=== PATIENT | female | born 1985 | race Caucasian/White ===

== ENCOUNTER → 2017-03-10 | Outpatient (CLI) | payer OTHER ==
[~2017-03-10] MED LIST: ASCO1CAP3 PO; CALC500T83 PO; CYAN100020 PO; MULTTAB58 PO; SUMA50TA15 PO; TRAM-453 PO; ZOLP5TAB PO
[2017-03-10 18:38] LABS: URINE APPEARANCE CLEAR (CLEAR); URINE BILIRUBIN NEG (NEG); URINE COLOR YELLOW; URINE NITRITE NEG (NEG); URINE PH 6.5 (4.5-7.5); URINE SPECIFIC GRAVITY 1.018 (1.000-1.030); UROBILINOGEN NEG (NEG)
[2017-03-10 18:50] LABS: MANUAL MICROSCOPIC REQUIRED? NO; REVIEW REQ? NO
== END | disposition home or self-care (01) ==
LOC: C.LABSPEC 10:58
PROVIDERS: ATTEND Obstetrics & Gynecology
DX: Z34.03 Encounter for supervision of normal first pregnancy, third trimester (principal)

== ENCOUNTER → 2017-03-14 | Outpatient (CLI) | payer OTHER ==
[2017-03-14 10:37] LABS: BASO % 0.2 %; BASO ABS # 0.02 K/uL (0-0.2); COMPLETE YES; EOS % 1.3 %; HEMATOCRIT 38.2 % (37-47); IG% 0.3 %; LYMPH % 21.8 %; LYMPH ABS # 2.25 K/uL (1.2-3.4); MEAN CELL VOLUME 94.3 fL (80-100); MEAN CORPUSCULAR HEMOGLOBIN 32.6 pg (25-34); MEAN CORPUSCULAR HGB CONC 34.6 g/dl (32-36); MEAN PLATELET VOLUME 11.1 fL (7.4-10.4); MONO % 6.2 %; NEUT % 70.2 %; PLATELET COUNT 256 K/uL (130-400); RED BLOOD COUNT 4.05 M/uL (4.2-5.4); WHITE BLOOD COUNT 10.33 K/uL (4.8-10.8)
[2017-03-15 15:02] LABS: CHLAMYDIA TRACH RNA*** NOT DETECTED (NOT DETECTED); GC (NEIS GONORRHOEAE)RNA** NOT DETECTED (NOT DETECTED)
== END | disposition home or self-care (01) ==
LOC: C.LAB1850 09:16
PROVIDERS: ATTEND Obstetrics & Gynecology
DX: Z34.01 Encounter for supervision of normal first pregnancy, first trimester (principal)

== ENCOUNTER → 2017-05-09 | Outpatient (CLI) | payer OTHER ==
[2017-05-09 12:27] LABS: GTGD 50 Grams
== END | disposition home or self-care (01) ==
LOC: C.LAB1850 10:26
PROVIDERS: ATTEND Obstetrics & Gynecology
DX: Z34.01 Encounter for supervision of normal first pregnancy, first trimester (principal)

== ENCOUNTER → 2017-08-08 | Outpatient (CLI) | payer OTHER ==
[2017-08-08 12:20] LABS: HEMATOCRIT 31.7 % (37-47); HEMOGLOBIN 10.5 g/dL (12.0-16.0)
== END ==
LOC: C.LAB1850 10:05
PROVIDERS: ATTEND Obstetrics & Gynecology
DX: Z34.02 Encounter for supervision of normal first pregnancy, second trimester (principal)

== ENCOUNTER → 2017-09-29 | Outpatient (CLI) | payer OTHER ==
[~2017-09-29] MED LIST changes: +BUTA1CAP17 PO; +FERR1TAB23 PO; +MAGN1CAP2 PO; +PYRI100T4 PO; -TRAM-453 PO; -ZOLP5TAB PO
== END | disposition home or self-care (01) ==
LOC: C.LABSPEC 16:10
PROVIDERS: ATTEND Obstetrics & Gynecology
DX: Z34.03 Encounter for supervision of normal first pregnancy, third trimester (principal)

== ENCOUNTER 2017-10-30 19:10 | Inpatient (IN) | payer OTHER ==
[~2017-10-30] VITALS: Ht 170.2 cm; Wt 84.1 kg
[2017-10-30] MEDS ORDERED: LACTATED RINGER'S 1000ML 1,000 ML IV PRN (19:36)
[2017-10-30 20:12] LABS: HEMATOCRIT 36.5 % (37-47); HEMOGLOBIN 12.8 g/dL (12.0-16.0); MEAN CELL VOLUME 89.2 fL (80-100); MEAN CORPUSCULAR HEMOGLOBIN 31.3 pg (25-34); PLATELET COUNT 185 K/uL (130-400); RED CELL DISTRIBUTION WIDTH CV 15.2 % (11.5-14.5); RED CELL DISTRIBUTION WIDTH SD 49.4 fL (36.4-46.3); WHITE BLOOD COUNT 15.06 K/uL (4.8-10.8)
[2017-10-30] MEDS ORDERED: EpHEDrine SULFATE INJ 50 MG/ML AMP ONE (20:14)
[2017-10-30] MEDS ORDERED: BUPIVACAINE 0.25% 30 ML VIAL ONE (20:14)
[2017-10-30] MEDS ORDERED: FENTANYL 2MCG/ML ROPIV 1.25MG/ML 100ML BAG EPI ONE (20:15)
[2017-10-30] MEDS ORDERED: FENTANYL CITRATE INJ 50 MCG/1 ML 2 ML VIAL ONE (20:15)
[2017-10-30 20:24] VITALS: Ht 170.2 cm; Wt 84.1 kg
[2017-10-30] MEDS ORDERED: BUTORPHANOL TARTRATE 1 MG/ML VIAL ONE (21:17)
[2017-10-30] MEDS ORDERED: BUTORPHANOL TARTRATE 1 MG/ML VIAL IV PRN (21:30)
[2017-10-30 21:33] LABS: MEAN CORPUSCULAR HGB CONC 35.1 g/dl (32-36)
[2017-10-30] MEDS ORDERED: LACTATED RINGER'S 1000ML 500 ML IV PRN (22:56)
[2017-10-30] MEDS ORDERED: OXYTOCIN 30 UNITS/500ML NSS IV PRN (23:00)
[2017-10-30] MEDS: LACTATED RINGER'S 1000ML 1,000 ML IV SCH (23:46)
[2017-10-31] MEDS: LACTATED RINGER'S 1000ML 1,000 ML IV SCH (02:23)
[2017-10-31] MEDS ORDERED: FENTANYL 2MCG/ML ROPIV 1.25MG/ML 100ML BAG EPI ONE (03:55)
[2017-10-31] MEDS ORDERED: LACTATED RINGER'S 1000ML 500 ML IV PRN (04:07)
[2017-10-31] MEDS ORDERED: NALOXONE HCL INJ 1 MG in SODIUM CHLORIDE 0.9% 1000ML 1,000 ML IV PRN (04:07)
[2017-10-31] MEDS ORDERED: PROMETHAZINE HCL INJ 6.25 MG in SODIUM CHLORIDE 0.9% 50ML 50 ML IV PRN (04:15)
[2017-10-31] MEDS ORDERED: DiphenhydrAMINE HCL 50 MG/ML VIAL IV PRN (04:15)
[2017-10-31] MEDS ORDERED: EpHEDrine SULFATE INJ 50 MG/ML AMP IV PRN (04:15)
[2017-10-31] MEDS ORDERED: NALOXONE HCL INJ 0.4 MG/1 ML VIAL/CARP IV PRN (04:15)
[2017-10-31] MEDS ORDERED: NALBUPHINE HCL INJ 10 MG/ML AMP IV PRN (04:15)
[2017-10-31] MEDS ORDERED: ONDANSETRON INJ 2 MG/ML 2 ML VIAL IV PRN (04:15)
[2017-10-31] MEDS ORDERED: FENTANYL 2MCG/ML ROPIV 1.25MG/ML 100ML BAG EPI PRN (04:15)
[2017-10-31] MEDS ORDERED: SUPERCREAM 0.870 % 15GM JAR EXT PRN (05:45)
[2017-10-31] MEDS ORDERED: HYDROCORTISONE ACETATE 25 MG SUPP PR PRN (05:45)
[2017-10-31] MEDS ORDERED: OXYTOCIN 30 UNITS/500ML NSS IV PRN (05:45)
[2017-10-31] MEDS ORDERED: ACETAMINOPHEN 325 MG TAB PO PRN (05:45)
[2017-10-31] MEDS ORDERED: BENZOCAINE 20% AER SPR 82.5 GM CAN EXT PRN (05:45)
[2017-10-31] MEDS ORDERED: LANOLIN OINT EXT PRN (05:45)
[2017-10-31] MEDS ORDERED: DIPHTHERIA/TETANUS/PERTUSSIS 0.5 ML SYR/VIAL IM. ONE (05:45)
--- NOTE | 2017-10-31 07:39 | Anesthesia Procedure Note ---
Anesthesia Epidural Removal Nt Date & Time Oct 31, 2017 at 07:39 Vital Signs Pain Intensity: 0.0 Notes Mental Status: alert / awake / arousable, participated in evaluation Nausea / Vomiting: adequately controlled Pain: adequately controlled Airway Patency, RR, SpO2: stable & adequate BP & HR: stable & adequate Hydration State: stable & adequate Neuraxial Anesthesia: was administered Anesthetic Complications: no major complications apparent, pt satisfied with anesthetic care Epidural: removed without complications, with tip intact
--- NOTE | 2017-10-31 08:12 | DELIVERY SUMMARY ---
DATE OF OPERATION: 10/31/2017 FINDINGS: Viable male with Apgars of 8 and 9. Baby delivered by vacuum extraction over midline episiotomy for maternal exhaustion, tight nuchal cord, cut on perineum. Cord gases and cord blood samples obtained. Placenta delivered spontaneously. Episiotomy repaired with 4-0 Vicryl in routine fashion. Estimated blood loss is 300 mL. LABOR NOTE: The patient is a 31-year-old 1, para 0 with an EDC of 10/26/2017 at 40+ weeks gestational age who presented to the labor and delivery and active labor. The patient states her contractions began at approximately 1630 hours on the 10/30/2017. She denied rupture of membranes or vaginal bleeding. The patient has a history of back fusion surgery. She saw anesthesia antenatally, and they felt they could try to place an epidural. Labs for the showed blood type of O negative, antibody negative. She received RhoGAM on 08/08/2017. She is rubella immune, hepatitis B negative. She had a negative cell free DNA screen, normal 1-hour Glucola x2, and a negative third trimester beta strep culture. Upon admission, the patient was 5 cm dilated, 100% effaced, and 0 station. Tracing was category 1. The patient was very uncomfortable. Anesthesia was consulted and an epidural was placed. Following the placement of the epidural, the patient had a hypotensive episode down to a blood pressure of 84/50, requiring ephedrine 10 mg IV x2. In response to the hypotension, the baby had a bradycardic episode, which responded to scalp stimulation, maternal positional change, and oxygen. heart rate tracing returned from a category 3 to a category 2 at this point and remained a category 2 for the remainder of the labor. During the examination with the bradycardic episode, there was spontaneous rupture of membranes of clear fluid. The patient at this time was 6 cm, 100% effaced, and 0 station. Over the next 5 hours, the patient progressed to full dilatation and began her second stage. She pushed for 2 hours bringing the vertex down to a +3 station. Some tachycardia was noted as well as an elevated maternal temperature. The patient was exhausted at this point and after obtaining verbal consent, a vacuum extractor was applied to the vertex and with the next contraction over midline episiotomy, the baby was delivered. A tight nuchal cord was noted necessitating cutting of the umbilical cord on the perineum. The remainder of the baby was delivered and taken over to the resuscitation stand for evaluation. Cord gases and cord blood samples obtained, and the placenta was delivered spontaneously. Inspection of the perineum showed a midline episiotomy. This was repaired with 4-0 Vicryl. Estimated blood loss was 300 mL. Sponge and needle count were correct. I attest to the content of the Intraoperative Record and any orders documented therein. Any exception s are noted below.
[2017-10-31] MEDS: IBUPROFEN 600 MG TAB PO PRN ×3 (08:18→20:37)
[2017-10-31 08:45] VITALS: BP 116/72; PULSE 97; TEMP 37; O2SAT 97
[2017-10-31 08:50] VITALS: BP 122/79; PULSE 88; TEMP 36.8; O2SAT 96
[2017-10-31] MEDS: FERROUS SULFATE 325 MG TAB PO SCH (08:58)
[2017-10-31] MEDS: DOCUSATE SODIUM 100 MG CAP PO SCH ×2 (08:58→20:36)
[2017-10-31] MEDS: PRENATAL VITAMIN TAB PO SCH (08:58)
[2017-10-31 11:15] VITALS: BP 120/80; PULSE 75; TEMP 36.6; O2SAT 99
[2017-10-31 15:40] VITALS: BP 123/82; PULSE 72; TEMP 36.4
[2017-10-31 20:30] VITALS: BP 109/70; PULSE 74; TEMP 36.4
[2017-10-31] MEDS: ACETAMINOPHEN/CODEINE 300/30MG TAB PO PRN (22:30)
[2017-10-31 23:50] VITALS: BP 128/73; PULSE 71; TEMP 36.5
[2017-11-01 04:10] VITALS: BP 103/66; PULSE 73; TEMP 36.4
[2017-11-01] MEDS: ACETAMINOPHEN/CODEINE 300/30MG TAB PO PRN ×3 (06:34→16:02)
--- NOTE | 2017-11-01 06:48 | Progress Note ---
Subjective Nov 01, 2017. Subjective conversation w/ patient, physical exam, chart review, lab review Ambulation: ambulating normally Voiding: no voiding problems Passing Gas: Yes Diet Tolerance: Regular Diet Lochia: Moderate Feeding Type: Breast Feeding Pain: Patient has a h/o lower back pain and back surgery--c/o increased Review of Systems Constitutional: No fever, No chills Respiratory: No cough Cardiac: No chest pain Abdomen: No pain, No nausea, No vomiting Female : No dysuria Objective Vital Signs Date Time Temp Pulse Resp B/P (MAP) Pulse Ox O2 Delivery O2 Flow Rate FiO2 11/01/17 04:10 36.4 73 18 103/66 (78) Room Air 10/31/17 23:50 36.5 71 20 128/73 (91) Room Air 10/31/17 23:50 Room Air 10/31/17 20:30 36.4 74 18 109/70 (83) Room Air 10/31/17 15:40 Room Air 10/31/17 15:40 36.4 72 18 123/82 (96) Room Air 10/31/17 11:15 36.6 75 18 120/80 (93) 99 Room Air 10/31/17 08:50 36.8 88 18 122/79 (93) 96 Room Air 10/31/17 08:45 97 Room Air 10/31/17 08:45 37.0 97 18 116/72 Physical Exam General Appearance: WELL-APPEARING, WD/WN, NO APPARENT DISTRESS Respiratory/Chest: lungs clear, no respiratory distress Cardiovascular: regular rate, rhythm, no murmur Abdomen: non tender, soft Fundus: Firm, Relation to Umbilicus (1 cm below umbillicus ) Extremities: non-tender, normal inspection Laboratory Results Last 24 Hours Test 11/01/17 04:44 Medications Current Inpatient Medications Medications (Trade) Dose Ordered Sig/Homa Route Start Time Stop Time Status Last Admin Dose Admin Oxytocin (Pitocin IV) 30 units UD PRN IV 10/31/17 05:45 11/30/17 05:44 Benzocaine (Dermoplast Aero Spr) 1 appln PRN PRN EXT 10/31/17 05:45 11/30/17 05:44 Cocaine HCl (Supercream 0.870% Cr) BID PRN EXT 10/31/17 05:45 11/14/17 05:44 10/31/17 16:34 1 GM Hydrocortisone Acetate (Anusol Hc Supp) 25 mg BID PRN LA 10/31/17 05:45 11/30/17 05:44 Lanolin (Lanolin Oint) PRN PRN EXT 10/31/17 05:45 11/30/17 05:44 Prenat Multivit/ Engineering [employer]/Iron/Folic Ac ( Vitamin Tab) 1 tab DAILY PO 10/31/17 08:00 11/30/17 07:59 10/31/17 08:58 1 TAB Ibuprofen (Motrin Tab) 600 mg Q4H PRN PO 10/31/17 05:45 11/30/17 05:44 10/31/17 20:37 600 MG Acetaminophen (Tylenol Tab) 650 mg Q6H PRN PO 10/31/17 05:45 11/30/17 05:44 10/31/17 16:34 650 MG Acetaminophen/ Codeine Phosphate (Tylenol w/ Codeine #3 Tab) 1 tab Q4H PRN PO 10/31/17 05:45 11/30/17 05:44 11/01/17 06:34 1 TAB Acetaminophen/ Codeine Phosphate (Tylenol w/ Codeine #3 Tab) 2 tab Q4H PRN PO 10/31/17 05:45 11/30/17 05:44 10/31/17 22:30 2 TAB Bisacodyl (Dulcolax Tab) 5 mg 20 PO 11/01/17 20:00 11/01/17 20:01 Docusate Sodium (coLACE CAP) 100 mg BID PO 10/31/17 08:00 11/30/17 07:59 10/31/17 20:36 100 MG Ferrous Sulfate (Feosol Tab) 325 mg DAILY PO 10/31/17 08:00 11/30/17 07:59 10/31/17 08:58 325 MG Assessment and Plan Post- Day#: 1 Continue Routine Care: 31 O-/GBS-/RI PPD1, vaginal delivery morning of 10/31. Reviewed vitals, WNL. No signs or sx of anemia. Patient is doing well clinically. Plan; 1. Cont. pp care; ambulate, control pain, support BF, monitor lochia Resident Physician Supervision Note: I was present with Dr. Lowry during the history and exam. I discussed the case with the resident and agree with the findings and plan as documented in the note. Any exceptions or clarifications are listed here: Doing well. Back pain is ok but she needs to get moving today. Using some pain meds. . Routine pp care., Documented By: Janice Bruner
[2017-11-01 07:27] VITALS: BP 109/73; PULSE 73; TEMP 36.6; O2SAT 97
[2017-11-01] MEDS: FERROUS SULFATE 325 MG TAB PO SCH (08:37)
[2017-11-01] MEDS: DOCUSATE SODIUM 100 MG CAP PO SCH ×2 (08:37→20:18)
[2017-11-01] MEDS: PRENATAL VITAMIN TAB PO SCH (08:37)
[2017-11-01] MEDS: IBUPROFEN 600 MG TAB PO PRN (08:38)
[2017-11-01 09:22] LABS: HEMATOCRIT 31.3 % (37-47); HEMOGLOBIN 10.8 g/dL (12.0-16.0)
[2017-11-01 15:40] VITALS: BP 113/73; PULSE 72; TEMP 36.6
[2017-11-01] MEDS ORDERED: BISACODYL 5 MG TABEC PO SCH (20:00)
--- NOTE | 2017-11-01 23:31 | Discharge Instructions ---
Discharge Instructions Date of Service Nov 01, 2017. Admission Reason for Admission: Check Labor Discharge Discharge Diagnosis / Problem: normal delivery Discharge Goals Goal(s): Routine recovery after delivery Medications Continue Dispensed Medications: supercream, dermaplast, tucks Activity Recommendations Activity Limitations: per Instructions/Follow-up section . Instructions / Follow-Up Instructions / Follow-Up ACTIVITY RECOMMENDATIONS: * Gradual return to full activity over the next 2-3 weeks. * No lifting - nothing heavier than baby over the next 2-3 weeks. * Do not engage in vigorous exercise, sexual activity or sports until cleared by your physician. * Do not drive or operate any motorized equipment until cleared by your physician. * You may shower/bathe daily. MEDICATIONS: For discomfort or pain, you may use Acetaminophen (Tylenol), Ibuprofen (Advil), or Naproxen (Aleve) following the package directions. For constipation you may use Colace following the package directions. BREAST CARE: If you are not breast feeding: * Wear a supportive bra 24 hours a day for one to two weeks. * Avoid stimulating your breasts and nipples as much as possible during the first few weeks after delivery. * When taking a shower, have the warm water hit your back, not breasts. * When your breasts feel full, apply ice packs. Usually three to four times a day helps ease the discomfort. * Take a mild pain medication (Tylenol / Motrin) when you are uncomfortable. If breast feeding: * Use breast milk to lubricate nipples. Lansinoh cream may be used for sore nipples. You do not need to remove cream prior to breast feeding. If using a different brand of cream, check the label for directions regarding removal of cream prior to nursing. * Wear a supportive bra. * If having problems with breasts or breast feeding, call a child welfare consultant or your health care provider. EPISIOTOMY CARE: After delivery, if you have an episiotomy (stitches), the following steps will ease discomfort and aid healing. * For the first 24 hours after delivery, place ice packs next to your episiotomy to help reduce swelling. * After the first 24 hour-period, sitz baths, either portable or in the tub, are suggested. A shower with a shower arm sprayed over the episiotomy may be comforting. * Alesha care should be done after each voiding and bowel movement. Squirt warm water from a plastic bottle over the perineum (region of the body between the anus and urinary opening) and pat dry. * Use Dermoplast to ease discomfort. Shake container. [place]ps[place] directly over the episiotomy. Place a Tucks on a clean sanitary pad next to your episiotomy. SPECIAL CARE INSTRUCTIONS: When you are discharged from the hospital, it is important for you to follow the instructions listed below: * During the first week at home, you should be able to care for yourself and your baby. In addition, the usual light household activities are encouraged. * Limit your activities to the way you feel. Do not try to clean the house or move furniture. Be sensible. * If you actively engage in sports and have done so up until the time of your delivery, you may resume these activities as soon as you feel able. This may take up to one month or even longer. Use good judgment. * Continue to take your vitamins for at least six weeks after the of your baby. * Your diet need not be limited unless you were on a special diet before your delivery. Breast-feeding mothers need around 2500 calories per day and at least 64-80 ounces of fluid per day (8 to 10 glasses). * You should eat foods from the four major food groups. Crash diets or fad diets are to be avoided. Eating lean meats, fresh fruits and vegetables, low-fat dairy products, high fiber foods and a regular exercise program, will help you get back to your pre- weight without putting your health at risk. * Constipation is sometimes a problem after delivery. Take a mild laxative as needed. If breast feeding, Milk of Magnesia is acceptable to use. You may use a suppository or Fleets enema if no episiotomy. * A daily shower or tub bath is suggested. Be sure to thoroughly and gently dry the perineum. * A bloody vaginal discharge will usually continue until around four weeks post . A small amount of bleeding may continue for as long as six weeks. Vaginal discharge changes from the bright red bleeding after delivery to pink then brownish and finally yellowish-pink before becoming white and disappearing. * Bleeding may increase with activity. Your first period may come in 4-8 weeks. If you are breast feeding, your period may be delayed even longer. * [place] (sex) can begin whenever both you and your partner feel comfortable and do not have any form of genital infection. It is recommended that you wait at least six weeks for internal and external healing to occur. If you have questions, please talk to your health care practitioner. A condom should be used to prevent infection and . * Foreplay, gentle intercourse and lubrication is very important the first several times to prevent pain. A water-based lubricant such as K-Y jelly or Astroglide may be used. * If you have RH negative blood and your baby is RH positive, you will receive RHOGAM by injection prior to discharge. The nurse will give you a card to keep with you that has the date and place that you received RHOGAM after delivery. * During your care, you had a Rubella screen done to check for the presence of rubella antibodies in your blood. If your test was negative, you will receive a Rubella vaccine prior to discharge. This vaccine may cause a fever, soreness at the injection site and flu-like symptoms. If these symptoms persist, notify your health care practitioner. is not advised for one month after a Rubella vaccine. * Verbalizes understanding of car seat law as reviewed with patient nursing. * Car Seat hand-out given and reviewed with patient by nursing. * Shaken baby information reviewed with patient by nursing. Call you doctor if: * Heavy bleeding (saturating several pads an hour) or passing clots the size of your fist. * A fever >101 degrees F (38.3 degrees C) on two occasions four hours apart and /or chills. * Unusual pain in the pelvic or vaginal areas. * "Baby Blues" lasting longer than two weeks. If you have any questions or concerns, call your health care practitioner at . FOLLOW UP VISIT: * Please call the office at to schedule a 6 week examination. It is important you keep this appointment. It is important for you to make arrangements for either yearly or twice yearly check-ups thereafter. Current Hospital Diet Patient's current hospital diet: Regular OB Diet Discharge Diet Recommended Diet: Regular OB Diet Pending Studies Studies pending at discharge: no Medical Emergencies . Who to Call and When: Medical Emergencies: If at any time you feel your situation is an emergency, please call 911 immediately. . Non-Emergent Contact Non-Emergency issues call your: [employer] . . "Provider Documentation" section prepared by Ami Zhang .
[2017-11-02 00:50] VITALS: BP 111/75; PULSE 82; TEMP 36.8; O2SAT 97
[2017-11-02] MEDS: ACETAMINOPHEN/CODEINE 300/30MG TAB PO PRN ×2 (01:09→08:33)
--- NOTE | 2017-11-02 06:50 | Progress Note ---
Subjective Nov 02, 2017. Subjective conversation w/ patient, physical exam, chart review, lab review Ambulation: ambulating normally Voiding: no voiding problems Passing Gas: No Diet Tolerance: Regular Diet Lochia: Small Feeding Type: Breast Feeding Comment: Patient has chronic back pain. Also c/o pain below her left knee. Review of Systems Constitutional: No fever, No chills Respiratory: No cough, No shortness of breath Cardiac: No chest pain Abdomen: No pain, No nausea, No vomiting Female : No dysuria Objective Vital Signs Date Time Temp Pulse Resp B/P (MAP) Pulse Ox O2 Delivery O2 Flow Rate FiO2 11/02/17 00:50 97 Room Air 11/02/17 00:50 36.8 82 18 111/75 (87) 97 Room Air 11/01/17 15:40 Room Air 11/01/17 15:40 36.6 72 20 113/73 (86) Room Air 11/01/17 09:02 Room Air 11/01/17 07:27 36.6 73 16 109/73 (85) 97 Room Air Physical Exam General Appearance: WELL-APPEARING, WD/WN, NO APPARENT DISTRESS Respiratory/Chest: lungs clear, no respiratory distress Cardiovascular: regular rate, rhythm, no murmur Abdomen: non tender, soft Fundus: Firm, Relation to Umbilicus (below u) Extremities: normal inspection, no pedal edema Laboratory Results Last 24 Hours Test 11/01/17 08:58 Hemoglobin 10.8 g/dL Hematocrit 31.3 % Medications Current Inpatient Medications Medications (Trade) Dose Ordered Sig/Homa Route Start Time Stop Time Status Last Admin Dose Admin Oxytocin (Pitocin IV) 30 units UD PRN IV 10/31/17 05:45 11/30/17 05:44 Benzocaine (Dermoplast Aero Spr) 1 appln PRN PRN EXT 10/31/17 05:45 11/30/17 05:44 Cocaine HCl (Supercream 0.870% Cr) BID PRN EXT 10/31/17 05:45 11/14/17 05:44 10/31/17 16:34 1 GM Hydrocortisone Acetate (Anusol Hc Supp) 25 mg BID PRN MA 10/31/17 05:45 11/30/17 05:44 Lanolin (Lanolin Oint) PRN PRN EXT 10/31/17 05:45 11/30/17 05:44 Prenat Multivit/ [place]/Iron/Folic Ac ( Vitamin Tab) 1 tab DAILY PO 10/31/17 08:00 11/30/17 07:59 11/01/17 08:37 1 TAB Ibuprofen (Motrin Tab) 600 mg Q4H PRN PO 10/31/17 05:45 11/30/17 05:44 11/01/17 08:38 600 MG Acetaminophen (Tylenol Tab) 650 mg Q6H PRN PO 10/31/17 05:45 11/30/17 05:44 10/31/17 16:34 650 MG Acetaminophen/ Codeine Phosphate (Tylenol w/ Codeine #3 Tab) 1 tab Q4H PRN PO 10/31/17 05:45 11/30/17 05:44 11/01/17 06:34 1 TAB Acetaminophen/ Codeine Phosphate (Tylenol w/ Codeine #3 Tab) 2 tab Q4H PRN PO 10/31/17 05:45 11/30/17 05:44 11/02/17 01:09 2 TAB Docusate Sodium (coLACE CAP) 100 mg BID PO 10/31/17 08:00 11/30/17 07:59 11/01/17 20:18 100 MG Ferrous Sulfate (Feosol Tab) 325 mg DAILY PO 10/31/17 08:00 11/30/17 07:59 11/01/17 08:37 325 MG Assessment and Plan Post- Day#: 2 Continue Routine Care: Resident Physician Supervision Note: I interviewed and examined the patient. Discussed with Dr. Lowry and agree with findings and plan as documented in the note. Any exceptions or clarifications are listed here: [None] Documented By: Ami Negrete Lorena 31 O-/GBS-/RI PPD2, vaginal delivery morning of 10/31. Reviewed vitals, WNL. No signs or sx of anemia. Patient is doing well clinically. Patient was c/ o some pain distal and lateral to her left knee--lasted 2 hours. Denies PMH of clots or FH of clots. Pain has since resolved, no overlying erythema or warmth-- likely MSK in origin. Plan; 1. Cont. pp care; ambulate, control pain, support BF, monitor lochia 2. Patient received rhogam at 28wks. Will determine need for additional dose prior to dc based on child's blood type. 3. Discussed dc planning
[2017-11-02 08:20] VITALS: BP 109/70; PULSE 67; TEMP 36.7; O2SAT 96
[2017-11-02] MEDS: FERROUS SULFATE 325 MG TAB PO SCH (08:33)
[2017-11-02] MEDS: PRENATAL VITAMIN TAB PO SCH (08:33)
[2017-11-02] MEDS: DOCUSATE SODIUM 100 MG CAP PO SCH (08:33)
[2017-11-02] MEDS: IBUPROFEN 600 MG TAB PO PRN (08:34)
[2017-11-02 12:25] VITALS: BP_DIAS 70; PULSE 67; TEMP 36.7
== END 2017-11-02 12:25 | disposition home or self-care (01) | DRG 774 ==
LOC: C.LD 19:10 → C.OPB 19:10 → C.LD 19:38 → C.OPB 19:38 → C.OBG 10-31 08:59
PROVIDERS: ADMIT Obstetrics & Gynecology; ATTEND Obstetrics & Gynecology
PROC: 0W8NXZZ Division of Female Perineum, External Approach (ICD-10-PCS; principal; 2017-10-31)
PROC: 10D07Z6 Extraction of Products of Conception, Vacuum, Via Natural or Artificial Opening (ICD-10-PCS; principal; 2017-10-31)
DX: O75.81 Maternal exhaustion complicating labor and delivery (principal); O75.2 Pyrexia during labor, not elsewhere classified; O36.0930 Maternal care for other rhesus isoimmunization, third trimester, not applicable or unspecified; O69.1XX0 Labor and delivery complicated by cord around neck, with compression, not applicable or unspecified; O76 Abnormality in fetal heart rate and rhythm complicating labor and delivery; Z98.1 Arthrodesis status; Z3A.40 40 weeks gestation of pregnancy; Z37.0 Single live birth

== ENCOUNTER → 2017-12-12 | Outpatient (CLI) | payer OTHER ==
[~2017-12-12] MED LIST changes: -CYAN100020 PO; -SUMA50TA15 PO
== END | disposition home or self-care (01) ==
LOC: C.PAPS 16:58
PROVIDERS: ATTEND Obstetrics & Gynecology
DX: Z12.4 Encounter for screening for malignant neoplasm of cervix (principal)

== ENCOUNTER 2020-06-24 07:39 | Inpatient (IN) ==
[2020-06-24] MEDS ORDERED: OXYTOCIN 30 UNITS/500 ML BAG IV PRN ×2 (07:48)
[2020-06-24 08:05] LABS: Hematocrit (blood only) 36.1 % (37-47); Hemoglobin 12.4 g/dL (12.0-16.0); Mean Corpuscular Hgb Conc 34.3 g/dL (32-36); Mean Corpuscular Volume 93.3 fL (80-100); Mean Platelet Volume 12.5 fL (7.4-10.4); Platelet Count 173 K/uL (130-400); RDW Coefficient of Variation 13.9 % (11.5-14.5); RDW Standard Deviation 47.3 fL (36.4-46.3); Red Blood Count 3.87 M/uL (4.2-5.4); White Blood Count 12.21 K/uL (4.8-10.8)
[2020-06-24] MEDS: LACTATED RINGER'S 1,000 ML IV PRN ×3 (09:17→18:14)
[2020-06-24] MEDS ORDERED: BUPIVACAINE 0.25% 30 ML VIAL ONE (12:30)
[2020-06-24] MEDS ORDERED: SODIUM CHLORIDE 0.9% INJ 10 ML VIAL ONE (12:30)
[2020-06-24] MEDS ORDERED: fentaNYL citrate 100 MCG/2 ML VIAL ONE (12:30)
[2020-06-24] MEDS ORDERED: ePHEDrine sulfate 50 MG/ML AMP ONE (12:30)
[2020-06-24] MEDS ORDERED: fentaNYL 2MCG/ML ROPIVACAINE 1.25MG/ML 100 ML BAG EPI ONE (12:31)
--- NOTE | 2020-06-24 13:25 | Anesthesiology Consultation ---
Date of Service June 24, 2020 Assessment & Plan Chart Review Chart Review: Acceptable Risk for Labor Epidural Consults Requested none History Height/Weight Height: 5 ft 8 in Weight: 85.275 kg Allergies Allergy/AdvReac Type Severity Reaction Status Date / Time No Known Drug Allergies Allergy Verified 06/23/20 11:09 Medications Home Medications Medication Instructions Recorded Confirmed Last Taken cetirizine [Zyrtec] 10 mg PO DAILY 06/24/20 06/24/20 06/24/20 06:30 prenat.vits,cassidy,[id number] 1 tab PO DAILY 06/24/20 06/24/20 06/24/20 06:30 [ Vitamin] Active Medications Generic Name Dose Route Start Last Admin Trade Name Freq PRN Reason Stop Dose Admin Lactated Ringer's 1,000 mls @ 125 mls/hr 06/24/20 07:48 06/24/20 13:00 Lr IV 06/26/20 07:47 999 mls/hr .Q8H PRN Administration L&D Protocol Protocol Oxytocin 30 units in 500 mls @ 9 mls/hr 06/24/20 07:48 06/24/20 11:54 Pitocin IV 06/26/20 07:47 0.54 units/hr .Q24H PRN 9 mls/hr Labor Induction/Augmentation Titration Protocol 0.54 UNITS/HR Past Medical History Medical History Encounter for anatomic survey Encounter for pre-operative examination History of blood transfusion Migraines Need for rhogam due to Rh negative mother Past Family History Family History Mother Breast cancer Grandmother (Paternal) Breast cancer Father Prostate cancer Hypertension Grandfather (Paternal) Hypertension Brother Hypertension Past Surgical History Surgical History H/O Spinal surgery S/P tonsillectomy [place] teeth removed Social History Smoking Status: Never smoker Hx Alcohol Use: No Hx Substance Use: No substance use type: does not use Physical Exam Vital Signs Last Vital Signs Temp 36.3 C L 06/24/20 08:00 Pulse 94 H 06/24/20 13:23 Resp 20 06/24/20 11:57 BP 107/58 L 06/24/20 13:22 Pulse Ox 99 06/24/20 13:23 Testing Laboratory Results 06/24/20 07:53
[2020-06-24] MEDS ORDERED: ePHEDrine sulfate 50 MG/ML AMP IV PRN (13:28)
[2020-06-24] MEDS ORDERED: NALOXONE HCL 1 MG in SODIUM CHLORIDE 0.9% 1000ML 1,000 ML IV PRN (13:28)
[2020-06-24] MEDS ORDERED: fentaNYL 2MCG/ML ROPIVACAINE 1.25MG/ML 100 ML BAG EPI PRN (13:28)
[2020-06-24] MEDS ORDERED: NALOXONE HCL 0.4 MG/1 ML VIAL/CARP IV PRN (13:28)
[2020-06-24] MEDS ORDERED: diphenhydrAMINE 50 MG/ML VIAL IV PRN (13:28)
--- NOTE | 2020-06-24 13:50 | History & Physical Report ---
Date of Service June 24, 2020 Assessment & Plan (1) Encounter for elective induction of labor: Admission and Anticipated Discharge Date Admission Date: June 24, 2020 late entry secondary to patient care. Plan admit. PItocin induction. epidural on demand. arom as indicated. anticipate . fetus reassuring. History of Present Illness Chief Complaint: induction Primary Care Provider: Idalmis Martinez DO Patient is a 34yowf with iup at 39 2/7 weeks who presents for elective induction for chronic back pain, worsened in . complicated by migraines. Has hx of chronic back pain with a spinal fusion. Patient had successful epidural placed in last . Patient notes good fm. no lof/vb. occasional contraction. Urrutia bulb fell out here in the bathroom today. labs--O-/ab-/ri/rprnr/hep B prelim +/final hep B neg/ hiv neg/ gtt x 2 nl/gc/ct- /declined cf/sma/ low risk panorama/gbs neg/covid neg Allergies Allergy/AdvReac Type Severity Reaction Status Date / Time No Known Drug Allergies Allergy Verified 06/23/20 11:09 Home Medications Medication Instructions Recorded Confirmed Type cetirizine [Zyrtec] 10 mg PO DAILY 06/24/20 06/24/20 History prenat.vits,cassidy,[id number]-[id number] 1 tab PO DAILY 06/24/20 06/24/20 History [ Vitamin] Patient History Medical History (Updated 06/24/20 @ 13:53 by Ayde Brown MD, FACOG) Chronic back pain Encounter for anatomic survey Encounter for pre-operative examination History of blood transfusion Migraines Need for rhogam due to Rh negative mother Surgical History H/O Spinal surgery S/P tonsillectomy [place] teeth removed Family History Mother Breast cancer Grandmother (Paternal) Breast cancer Father Prostate cancer Hypertension Grandfather (Paternal) Hypertension Brother Hypertension Social History Smoking Status: Never smoker Second Hand Exposure: No; Hx Alcohol Use: No Hx Substance Use: No Preferred Language: Kiswahili Beliefs That Will Affect Care: None marital status: marital status details: Waylon Bynum, ([phone] Current Living Situation: Spouse Current Living Situation Comment: lives with and son, no pets current occupational status: employed current occupation: [employer] Other Information That Helps Us Care for You: No Feels Safe at Home: Yes Safety Concerns: Feels Safe At This Time Assistive Devices: None OB History g1--11/09--vavd for maternal exhaustion and tight nuchal cord, 40 weeks, 8#6oz, PROJECT ADMINISTRATIVE ASSISTANT History noncontributory Review of Systems All systems reviewed & are unremarkable except as noted in HPI & below Physical Exam Constitutional: WD/WN, vitals as above Gastrointestinal (Abdomen): soft, gravid, nt Psychiatric: A+Ox3, euthymic affect Genitourinary: cx--on admission, /-2 toco--rare efm--category one, rnst Results & Data ([facility]) Vital Signs (Past 12 Hours) Vital Signs Temp Pulse Resp BP Pulse Ox 06/24/20 13:43 103 H 97 06/24/20 13:42 89 101/55 L 06/24/20 13:38 77 100/55 L 96 06/24/20 13:33 91 H 111/59 L 97 06/24/20 13:29 91 H 109/60 06/24/20 13:28 86 98 06/24/20 13:23 94 H 99 06/24/20 13:22 91 H 107/58 L 06/24/20 13:18 97 H 99 06/24/20 13:17 104 H 110/63 06/24/20 13:15 86 109/58 L 06/24/20 13:13 88 124/58 L 100 06/24/20 13:11 101 H 123/69 06/24/20 13:09 102 H 130/79 06/24/20 13:08 94 H 100 06/24/20 13:07 92 H 106/57 L 06/24/20 13:05 77 115/68 06/24/20 13:03 93 H 100 06/24/20 13:01 80 132/84 06/24/20 12:58 83 100 06/24/20 12:53 82 100 06/24/20 11:57 69 20 127/82 06/24/20 10:52 75 118/65 06/24/20 09:25 90 117/70 06/24/20 08:01 92 H 116/79 06/24/20 08:00 36.3 C L 20 Coding Level of Care Code None Diagnoses Encounter for elective induction of labor Z34.90
--- NOTE | 2020-06-24 17:50 | Labor Progress Brief Note ---
Date of Service June 24, 2020 Subjective comfortable with epidural Assessment & Plan (1) Encounter for elective induction of labor: Admission and Anticipated Discharge Date Admission Date: June 24, 2020 arom now. fetus category one. continue pitocin, anticipate . Physical Exam Constitutional: WD/WN, vitals as above Psychiatric: A+Ox3, euthymic affect Genitourinary: cx--4/75/-2 arom--copious clear toco--q2-3mini efm--130s with mod variability, accels present, no decels Results & Data ([facility]) Vital Signs (Past 12 Hours) Vital Signs Temp Pulse Resp BP Pulse Ox 06/24/20 17:43 81 99 06/24/20 17:38 85 100 06/24/20 17:37 81 124/71 06/24/20 17:33 77 100 06/24/20 17:28 78 100 06/24/20 17:23 77 112/77 100 06/24/20 17:18 70 100 06/24/20 17:13 76 100 06/24/20 17:08 81 100 06/24/20 17:06 80 118/72 06/24/20 17:03 79 100 06/24/20 16:58 85 100 06/24/20 16:53 77 127/73 100 06/24/20 16:48 81 100 06/24/20 16:43 82 99 06/24/20 16:38 81 100 06/24/20 16:37 76 112/69 06/24/20 16:33 73 100 06/24/20 16:28 71 99 06/24/20 16:23 36.3 C L 77 20 105/61 100 06/24/20 16:18 84 98 06/24/20 16:13 75 98 06/24/20 16:08 79 99 06/24/20 16:06 75 108/60 06/24/20 16:03 76 99 06/24/20 15:58 88 98 06/24/20 15:53 81 113/57 L 98 06/24/20 15:48 84 98 06/24/20 15:43 85 98 06/24/20 15:38 86 98 06/24/20 15:37 85 112/66 06/24/20 15:33 76 98 06/24/20 15:28 96 H 98 06/24/20 15:23 78 96 06/24/20 15:22 80 106/56 L 06/24/20 15:18 77 96 06/24/20 15:13 77 97 06/24/20 15:08 71 95 06/24/20 15:06 77 97/56 L 06/24/20 15:03 78 96 06/24/20 14:58 75 95 06/24/20 14:53 77 98/55 L 96 06/24/20 14:48 72 95 06/24/20 14:43 76 96 06/24/20 14:38 93 H 95 06/24/20 14:37 78 109/62 06/24/20 14:33 84 98 06/24/20 14:28 72 95 06/24/20 14:23 77 95 06/24/20 14:22 75 103/56 L 94 06/24/20 14:18 79 95 06/24/20 14:16 77 94 06/24/20 14:13 90 97 06/24/20 14:08 97 H 103/58 L 96 06/24/20 14:07 80 94 06/24/20 14:03 97 H 98 06/24/20 14:00 76 93 06/24/20 13:58 103 H 97 06/24/20 13:54 92 H 104/56 L 06/24/20 13:53 78 99 06/24/20 13:50 73 107/60 06/24/20 13:48 76 95 06/24/20 13:47 81 97/53 L 06/24/20 13:45 75 94 06/24/20 13:43 103 H 97 06/24/20 13:42 89 101/55 L 06/24/20 13:38 77 100/55 L 96 06/24/20 13:33 91 H 111/59 L 97 06/24/20 13:29 91 H 109/60 06/24/20 13:28 86 98 06/24/20 13:23 94 H 99 06/24/20 13:22 91 H 107/58 L 06/24/20 13:18 97 H 99 06/24/20 13:17 104 H 110/63 06/24/20 13:15 86 109/58 L 06/24/20 13:13 88 124/58 L 100 06/24/20 13:11 101 H 123/69 06/24/20 13:09 102 H 130/79 06/24/20 13:08 94 H 100 06/24/20 13:07 92 H 106/57 L 06/24/20 13:05 77 115/68 06/24/20 13:03 93 H 100 06/24/20 13:01 80 132/84 06/24/20 12:58 83 100 06/24/20 12:53 82 100 06/24/20 11:57 69 20 127/82 06/24/20 10:52 75 118/65 06/24/20 09:25 90 117/70 06/24/20 08:01 92 H 116/79 06/24/20 08:00 36.3 C L 20 Coding Level of Care Code None Diagnoses Encounter for elective induction of labor Z34.90
--- NOTE | 2020-06-24 20:03 | Labor Progress Brief Note ---
Date of Service June 24, 2020 Subjective comfortable with epidural but noting some pressure Assessment & Plan (1) Encounter for elective induction of labor: Admission and Anticipated Discharge Date Admission Date: June 24, 2020 making slow change. Will recheck in one hour. If no significant change, will place iupc. Fetus category two but overall reassuring. Physical Exam Constitutional: WD/WN, vitals as above Psychiatric: A+Ox3, euthymic affect Genitourinary: cx--5/75/-2 toco--q2-4min, pit at 15 efm--145 with mod variability, small accels, variables with some contractions. Results & Data ([facility]) Vital Signs (Past 12 Hours) Vital Signs Temp Pulse Resp BP Pulse Ox 06/24/20 19:58 75 99 06/24/20 19:53 78 122/80 100 06/24/20 19:48 92 H 99 06/24/20 19:43 94 H 98 06/24/20 19:38 87 97 06/24/20 19:37 75 121/70 06/24/20 19:33 73 98 06/24/20 19:30 36.8 C 18 06/24/20 19:28 73 98 06/24/20 19:23 70 99 06/24/20 19:21 71 124/78 06/24/20 19:18 80 98 06/24/20 19:13 76 98 06/24/20 19:08 71 98 06/24/20 19:07 73 120/74 06/24/20 19:03 85 97 06/24/20 18:58 77 97 06/24/20 18:53 89 98 06/24/20 18:52 85 109/62 06/24/20 18:48 93 H 98 06/24/20 18:43 79 96 06/24/20 18:38 80 105/58 L 97 06/24/20 18:33 88 96 06/24/20 18:30 18 06/24/20 18:28 88 98 06/24/20 18:23 85 99 06/24/20 18:22 87 114/66 06/24/20 18:18 89 100 06/24/20 18:13 92 H 100 06/24/20 18:08 101 H 100 06/24/20 18:07 86 109/62 06/24/20 18:03 102 H 100 06/24/20 18:00 18 06/24/20 17:58 84 99 06/24/20 17:53 83 100 06/24/20 17:52 77 115/76 06/24/20 17:48 76 100 06/24/20 17:47 36.4 C L 06/24/20 17:43 81 99 06/24/20 17:38 85 100 06/24/20 17:37 81 124/71 06/24/20 17:33 77 100 06/24/20 17:30 16 06/24/20 17:28 78 100 06/24/20 17:23 77 112/77 100 06/24/20 17:18 70 100 06/24/20 17:13 76 100 06/24/20 17:08 81 100 06/24/20 17:06 80 118/72 06/24/20 17:03 79 100 06/24/20 17:00 18 06/24/20 16:58 85 100 06/24/20 16:53 77 127/73 100 06/24/20 16:48 81 100 06/24/20 16:43 82 99 06/24/20 16:38 81 100 06/24/20 16:37 76 112/69 06/24/20 16:33 73 100 06/24/20 16:28 71 99 06/24/20 16:23 36.3 C L 77 20 105/61 100 06/24/20 16:18 84 98 06/24/20 16:13 75 98 06/24/20 16:08 79 99 06/24/20 16:06 75 108/60 06/24/20 16:03 76 99 06/24/20 15:58 88 98 06/24/20 15:53 81 113/57 L 98 06/24/20 15:48 84 98 06/24/20 15:43 85 98 06/24/20 15:38 86 98 06/24/20 15:37 85 112/66 06/24/20 15:33 76 98 06/24/20 15:28 96 H 98 06/24/20 15:23 78 96 06/24/20 15:22 80 106/56 L 06/24/20 15:18 77 96 06/24/20 15:13 77 97 06/24/20 15:08 71 95 06/24/20 15:06 77 97/56 L 06/24/20 15:03 78 96 06/24/20 14:58 75 95 06/24/20 14:53 77 98/55 L 96 06/24/20 14:48 72 95 06/24/20 14:43 76 96 06/24/20 14:38 93 H 95 06/24/20 14:37 78 109/62 06/24/20 14:33 84 98 06/24/20 14:28 72 95 06/24/20 14:23 77 95 06/24/20 14:22 75 103/56 L 94 06/24/20 14:18 79 95 06/24/20 14:16 77 94 06/24/20 14:13 90 97 06/24/20 14:08 97 H 103/58 L 96 06/24/20 14:07 80 94 06/24/20 14:03 97 H 98 06/24/20 14:00 76 93 06/24/20 13:58 103 H 97 06/24/20 13:54 92 H 104/56 L 06/24/20 13:53 78 99 06/24/20 13:50 73 107/60 06/24/20 13:48 76 95 06/24/20 13:47 81 97/53 L 06/24/20 13:45 75 94 06/24/20 13:43 103 H 97 06/24/20 13:42 89 101/55 L 06/24/20 13:38 77 100/55 L 96 06/24/20 13:33 91 H 111/59 L 97 06/24/20 13:29 91 H 109/60 06/24/20 13:28 86 98 06/24/20 13:23 94 H 99 06/24/20 13:22 91 H 107/58 L 06/24/20 13:18 97 H 99 06/24/20 13:17 104 H 110/63 06/24/20 13:15 86 109/58 L 06/24/20 13:13 88 124/58 L 100 06/24/20 13:11 101 H 123/69 06/24/20 13:09 102 H 130/79 06/24/20 13:08 94 H 100 06/24/20 13:07 92 H 106/57 L 06/24/20 13:05 77 115/68 06/24/20 13:03 93 H 100 06/24/20 13:01 80 132/84 06/24/20 12:58 83 100 06/24/20 12:53 82 100 06/24/20 11:57 69 20 127/82 06/24/20 10:52 75 118/65 06/24/20 09:25 90 117/70 Coding Level of Care Code None Diagnoses Encounter for elective induction of labor Z34.90
[2020-06-24] MEDS ORDERED: ONDANSETRON INJ 2 MG/ML 2 ML VIAL ONE (20:05)
[2020-06-24] MEDS ORDERED: ONDANSETRON INJ 2 MG/ML 2 ML VIAL IV PRN (20:54)
--- NOTE | 2020-06-24 21:13 | Labor Progress Brief Note ---
Date of Service June 24, 2020 Subjective resting Assessment & Plan (1) Encounter for elective induction of labor: Admission and Anticipated Discharge Date Admission Date: June 24, 2020 iupc placed. continue current therapy. fetus overall reassuring. Physical Exam Constitutional: WD/WN, vitals as above Psychiatric: A+Ox3, euthymic affect Genitourinary: cx--6/75/-2 toco--q2 min, pit at 19 efm--135 with mod variability, small accels, variables with contractions Results & Data ([facility]) Vital Signs (Past 12 Hours) Vital Signs Temp Pulse Resp BP Pulse Ox 06/24/20 21:07 86 122/68 06/24/20 21:03 79 99 06/24/20 20:58 80 96 06/24/20 20:53 79 96 06/24/20 20:51 90 115/72 06/24/20 20:48 82 96 06/24/20 20:43 85 97 06/24/20 20:38 85 121/77 98 06/24/20 20:33 78 96 06/24/20 20:30 18 06/24/20 20:28 73 97 06/24/20 20:23 73 100 06/24/20 20:21 70 123/80 06/24/20 20:18 72 98 06/24/20 20:13 75 99 06/24/20 20:08 84 98 06/24/20 20:06 72 119/78 06/24/20 20:03 78 99 06/24/20 19:58 75 99 06/24/20 19:53 78 122/80 100 06/24/20 19:48 92 H 99 06/24/20 19:43 94 H 98 06/24/20 19:38 87 97 06/24/20 19:37 75 121/70 06/24/20 19:33 73 98 06/24/20 19:30 36.8 C 18 06/24/20 19:28 73 98 06/24/20 19:23 70 99 06/24/20 19:21 71 124/78 06/24/20 19:18 80 98 06/24/20 19:13 76 98 06/24/20 19:08 71 98 06/24/20 19:07 73 120/74 06/24/20 19:03 85 97 06/24/20 18:58 77 97 06/24/20 18:53 89 98 06/24/20 18:52 85 109/62 06/24/20 18:48 93 H 98 06/24/20 18:43 79 96 06/24/20 18:38 80 105/58 L 97 06/24/20 18:33 88 96 06/24/20 18:30 18 06/24/20 18:28 88 98 06/24/20 18:23 85 99 06/24/20 18:22 87 114/66 06/24/20 18:18 89 100 06/24/20 18:13 92 H 100 06/24/20 18:08 101 H 100 06/24/20 18:07 86 109/62 06/24/20 18:03 102 H 100 06/24/20 18:00 18 06/24/20 17:58 84 99 06/24/20 17:53 83 100 06/24/20 17:52 77 115/76 06/24/20 17:48 76 100 06/24/20 17:47 36.4 C L 06/24/20 17:43 81 99 06/24/20 17:38 85 100 06/24/20 17:37 81 124/71 06/24/20 17:33 77 100 06/24/20 17:30 16 06/24/20 17:28 78 100 06/24/20 17:23 77 112/77 100 06/24/20 17:18 70 100 06/24/20 17:13 76 100 06/24/20 17:08 81 100 06/24/20 17:06 80 118/72 06/24/20 17:03 79 100 06/24/20 17:00 18 06/24/20 16:58 85 100 06/24/20 16:53 77 127/73 100 06/24/20 16:48 81 100 06/24/20 16:43 82 99 06/24/20 16:38 81 100 06/24/20 16:37 76 112/69 06/24/20 16:33 73 100 06/24/20 16:28 71 99 06/24/20 16:23 36.3 C L 77 20 105/61 100 06/24/20 16:18 84 98 06/24/20 16:13 75 98 06/24/20 16:08 79 99 06/24/20 16:06 75 108/60 06/24/20 16:03 76 99 06/24/20 15:58 88 98 06/24/20 15:53 81 113/57 L 98 06/24/20 15:48 84 98 06/24/20 15:43 85 98 06/24/20 15:38 86 98 06/24/20 15:37 85 112/66 06/24/20 15:33 76 98 06/24/20 15:28 96 H 98 06/24/20 15:23 78 96 06/24/20 15:22 80 106/56 L 06/24/20 15:18 77 96 06/24/20 15:13 77 97 06/24/20 15:08 71 95 06/24/20 15:06 77 97/56 L 06/24/20 15:03 78 96 06/24/20 14:58 75 95 06/24/20 14:53 77 98/55 L 96 06/24/20 14:48 72 95 06/24/20 14:43 76 96 06/24/20 14:38 93 H 95 06/24/20 14:37 78 109/62 06/24/20 14:33 84 98 06/24/20 14:28 72 95 06/24/20 14:23 77 95 06/24/20 14:22 75 103/56 L 94 06/24/20 14:18 79 95 06/24/20 14:16 77 94 06/24/20 14:13 90 97 06/24/20 14:08 97 H 103/58 L 96 06/24/20 14:07 80 94 06/24/20 14:03 97 H 98 06/24/20 14:00 76 93 06/24/20 13:58 103 H 97 06/24/20 13:54 92 H 104/56 L 06/24/20 13:53 78 99 06/24/20 13:50 73 107/60 06/24/20 13:48 76 95 06/24/20 13:47 81 97/53 L 06/24/20 13:45 75 94 06/24/20 13:43 103 H 97 06/24/20 13:42 89 101/55 L 06/24/20 13:38 77 100/55 L 96 06/24/20 13:33 91 H 111/59 L 97 06/24/20 13:29 91 H 109/60 06/24/20 13:28 86 98 06/24/20 13:23 94 H 99 06/24/20 13:22 91 H 107/58 L 06/24/20 13:18 97 H 99 06/24/20 13:17 104 H 110/63 06/24/20 13:15 86 109/58 L 06/24/20 13:13 88 124/58 L 100 06/24/20 13:11 101 H 123/69 06/24/20 13:09 102 H 130/79 06/24/20 13:08 94 H 100 06/24/20 13:07 92 H 106/57 L 06/24/20 13:05 77 115/68 06/24/20 13:03 93 H 100 06/24/20 13:01 80 132/84 06/24/20 12:58 83 100 06/24/20 12:53 82 100 06/24/20 11:57 69 20 127/82 06/24/20 10:52 75 118/65 06/24/20 09:25 90 117/70 Coding Level of Care Code None Diagnoses Encounter for elective induction of labor Z34.90
--- NOTE | 2020-06-24 23:13 | Labor Progress Brief Note ---
Date of Service June 24, 2020 Subjective having some back pain, bloody show Assessment & Plan (1) Encounter for elective induction of labor: Admission and Anticipated Discharge Date Admission Date: June 24, 2020 arom at 5, iupc at 9 and appears to be adequately giovany since placement. Concerned that not making significant change, however, have not given enough time with adequate contractions. Fetus category two with variables but overall reassuring. continue current management. Physical Exam Constitutional: WD/WN, vitals as above Psychiatric: A+Ox3, euthymic affect Genitourinary: cx--6/80/-2 toco--q2-3 min, pit at 23, MVUS >200 since placement at about 9pm efm--135 with mod variability, variable/early with contractions. +scalp stim Results & Data ([facility]) Vital Signs (Past 12 Hours) Vital Signs Temp Pulse Resp BP Pulse Ox 06/24/20 23:07 91 H 94 06/24/20 23:03 71 99 06/24/20 23:02 91 H 94 06/24/20 22:58 70 99 06/24/20 22:53 72 97 06/24/20 22:51 68 118/75 06/24/20 22:48 69 97 06/24/20 22:43 67 96 06/24/20 22:38 72 97 06/24/20 22:36 66 121/77 06/24/20 22:33 79 97 06/24/20 22:30 18 06/24/20 22:28 66 97 06/24/20 22:23 68 96 06/24/20 22:21 65 120/72 06/24/20 22:18 76 98 06/24/20 22:13 69 97 06/24/20 22:08 76 130/76 98 06/24/20 22:03 80 98 06/24/20 21:58 77 98 06/24/20 21:53 82 96 06/24/20 21:52 78 112/61 06/24/20 21:48 87 97 06/24/20 21:43 80 97 06/24/20 21:38 80 97 06/24/20 21:36 82 109/56 L 06/24/20 21:33 88 97 06/24/20 21:30 36.8 C 20 06/24/20 21:28 106 H 99 06/24/20 21:23 88 97 06/24/20 21:22 83 113/58 L 06/24/20 21:18 86 98 06/24/20 21:13 80 97 06/24/20 21:08 90 99 06/24/20 21:07 86 122/68 06/24/20 21:03 79 99 06/24/20 20:58 80 96 06/24/20 20:53 79 96 06/24/20 20:51 90 115/72 06/24/20 20:48 82 96 06/24/20 20:43 85 97 06/24/20 20:38 85 121/77 98 06/24/20 20:33 78 96 06/24/20 20:30 18 06/24/20 20:28 73 97 06/24/20 20:23 73 100 06/24/20 20:21 70 123/80 06/24/20 20:18 72 98 06/24/20 20:13 75 99 06/24/20 20:08 84 98 06/24/20 20:06 72 119/78 06/24/20 20:03 78 99 06/24/20 19:58 75 99 06/24/20 19:53 78 122/80 100 06/24/20 19:48 92 H 99 06/24/20 19:43 94 H 98 06/24/20 19:38 87 97 06/24/20 19:37 75 121/70 06/24/20 19:33 73 98 06/24/20 19:30 36.8 C 18 06/24/20 19:28 73 98 06/24/20 19:23 70 99 06/24/20 19:21 71 124/78 06/24/20 19:18 80 98 06/24/20 19:13 76 98 06/24/20 19:08 71 98 06/24/20 19:07 73 120/74 06/24/20 19:03 85 97 06/24/20 18:58 77 97 06/24/20 18:53 89 98 06/24/20 18:52 85 109/62 06/24/20 18:48 93 H 98 06/24/20 18:43 79 96 06/24/20 18:38 80 105/58 L 97 06/24/20 18:33 88 96 06/24/20 18:30 18 06/24/20 18:28 88 98 06/24/20 18:23 85 99 06/24/20 18:22 87 114/66 06/24/20 18:18 89 100 06/24/20 18:13 92 H 100 06/24/20 18:08 101 H 100 06/24/20 18:07 86 109/62 06/24/20 18:03 102 H 100 06/24/20 18:00 18 06/24/20 17:58 84 99 06/24/20 17:53 83 100 06/24/20 17:52 77 115/76 06/24/20 17:48 76 100 06/24/20 17:47 36.4 C L 06/24/20 17:43 81 99 06/24/20 17:38 85 100 06/24/20 17:37 81 124/71 06/24/20 17:33 77 100 06/24/20 17:30 16 06/24/20 17:28 78 100 06/24/20 17:23 77 112/77 100 06/24/20 17:18 70 100 06/24/20 17:13 76 100 06/24/20 17:08 81 100 06/24/20 17:06 80 118/72 06/24/20 17:03 79 100 06/24/20 17:00 18 06/24/20 16:58 85 100 06/24/20 16:53 77 127/73 100 06/24/20 16:48 81 100 06/24/20 16:43 82 99 06/24/20 16:38 81 100 06/24/20 16:37 76 112/69 06/24/20 16:33 73 100 06/24/20 16:28 71 99 06/24/20 16:23 36.3 C L 77 20 105/61 100 06/24/20 16:18 84 98 06/24/20 16:13 75 98 06/24/20 16:08 79 99 06/24/20 16:06 75 108/60 06/24/20 16:03 76 99 06/24/20 15:58 88 98 06/24/20 15:53 81 113/57 L 98 06/24/20 15:48 84 98 06/24/20 15:43 85 98 06/24/20 15:38 86 98 06/24/20 15:37 85 112/66 06/24/20 15:33 76 98 06/24/20 15:28 96 H 98 06/24/20 15:23 78 96 06/24/20 15:22 80 106/56 L 06/24/20 15:18 77 96 06/24/20 15:13 77 97 06/24/20 15:08 71 95 06/24/20 15:06 77 97/56 L 06/24/20 15:03 78 96 06/24/20 14:58 75 95 06/24/20 14:53 77 98/55 L 96 06/24/20 14:48 72 95 06/24/20 14:43 76 96 06/24/20 14:38 93 H 95 06/24/20 14:37 78 109/62 06/24/20 14:33 84 98 06/24/20 14:28 72 95 06/24/20 14:23 77 95 06/24/20 14:22 75 103/56 L 94 06/24/20 14:18 79 95 06/24/20 14:16 77 94 06/24/20 14:13 90 97 06/24/20 14:08 97 H 103/58 L 96 06/24/20 14:07 80 94 06/24/20 14:03 97 H 98 06/24/20 14:00 76 93 06/24/20 13:58 103 H 97 06/24/20 13:54 92 H 104/56 L 06/24/20 13:53 78 99 06/24/20 13:50 73 107/60 06/24/20 13:48 76 95 06/24/20 13:47 81 97/53 L 06/24/20 13:45 75 94 06/24/20 13:43 103 H 97 06/24/20 13:42 89 101/55 L 06/24/20 13:38 77 100/55 L 96 06/24/20 13:33 91 H 111/59 L 97 06/24/20 13:29 91 H 109/60 06/24/20 13:28 86 98 06/24/20 13:23 94 H 99 06/24/20 13:22 91 H 107/58 L 06/24/20 13:18 97 H 99 06/24/20 13:17 104 H 110/63 06/24/20 13:15 86 109/58 L 06/24/20 13:13 88 124/58 L 100 06/24/20 13:11 101 H 123/69 06/24/20 13:09 102 H 130/79 06/24/20 13:08 94 H 100 06/24/20 13:07 92 H 106/57 L 06/24/20 13:05 77 115/68 06/24/20 13:03 93 H 100 06/24/20 13:01 80 132/84 06/24/20 12:58 83 100 06/24/20 12:53 82 100 06/24/20 11:57 69 20 127/82 Coding Level of Care Code None Diagnoses Encounter for elective induction of labor Z34.90
--- NOTE | 2020-06-25 01:14 | Labor Progress Brief Note ---
Date of Service June 25, 2020 Subjective having some back pain, was just napping, bloody show Assessment & Plan (1) Encounter for elective induction of labor: Admission and Anticipated Discharge Date Admission Date: June 24, 2020 finally making good change. fetus category two and overall reassuring. anticipate . Physical Exam Constitutional: WD/WN, vitals as above Psychiatric: A+Ox3, euthymic affect Genitourinary: cx--9/100/-1 toco--q2-3min, pit at 23, mvus greater than 200 efm--130s with mod variability, early/variable with contractions Results & Data ([facility]) Vital Signs (Past 12 Hours) Vital Signs Temp Pulse Resp BP Pulse Ox 06/25/20 01:08 87 97 06/25/20 01:03 83 98 06/25/20 00:58 92 H 116/75 98 06/25/20 00:53 73 97 06/25/20 00:48 77 96 06/25/20 00:44 72 113/62 06/25/20 00:43 72 97 06/25/20 00:38 72 96 06/25/20 00:33 76 96 06/25/20 00:30 36.7 C 18 06/25/20 00:28 71 106/67 96 06/25/20 00:23 73 96 06/25/20 00:18 74 97 06/25/20 00:13 71 111/70 97 06/25/20 00:08 69 97 06/25/20 00:03 70 98 06/25/20 00:00 18 06/24/20 23:59 74 115/73 06/24/20 23:58 72 98 06/24/20 23:53 73 98 06/24/20 23:48 76 99 06/24/20 23:44 81 107/60 06/24/20 23:43 76 99 06/24/20 23:38 79 98 06/24/20 23:33 82 99 06/24/20 23:28 81 123/67 99 06/24/20 23:23 67 93 06/24/20 23:21 88 92 06/24/20 23:18 89 99 06/24/20 23:13 103 H 99 06/24/20 23:08 93 H 100 06/24/20 23:07 91 H 94 06/24/20 23:03 71 99 06/24/20 23:02 91 H 94 06/24/20 23:00 18 06/24/20 22:58 70 99 06/24/20 22:53 72 97 06/24/20 22:51 68 118/75 06/24/20 22:48 69 97 06/24/20 22:43 67 96 06/24/20 22:38 72 97 06/24/20 22:36 66 121/77 06/24/20 22:33 79 97 06/24/20 22:30 18 06/24/20 22:28 66 97 06/24/20 22:23 68 96 06/24/20 22:21 65 120/72 06/24/20 22:18 76 98 06/24/20 22:13 69 97 06/24/20 22:08 76 130/76 98 06/24/20 22:03 80 98 06/24/20 21:58 77 98 06/24/20 21:53 82 96 06/24/20 21:52 78 112/61 06/24/20 21:48 87 97 06/24/20 21:43 80 97 06/24/20 21:38 80 97 06/24/20 21:36 82 109/56 L 06/24/20 21:33 88 97 06/24/20 21:30 36.8 C 20 06/24/20 21:28 106 H 99 06/24/20 21:23 88 97 06/24/20 21:22 83 113/58 L 06/24/20 21:18 86 98 06/24/20 21:13 80 97 06/24/20 21:08 90 99 06/24/20 21:07 86 122/68 06/24/20 21:03 79 99 06/24/20 20:58 80 96 06/24/20 20:53 79 96 06/24/20 20:51 90 115/72 06/24/20 20:48 82 96 06/24/20 20:43 85 97 06/24/20 20:38 85 121/77 98 06/24/20 20:33 78 96 06/24/20 20:30 18 06/24/20 20:28 73 97 06/24/20 20:23 73 100 06/24/20 20:21 70 123/80 06/24/20 20:18 72 98 06/24/20 20:13 75 99 06/24/20 20:08 84 98 06/24/20 20:06 72 119/78 06/24/20 20:03 78 99 06/24/20 19:58 75 99 06/24/20 19:53 78 122/80 100 06/24/20 19:48 92 H 99 06/24/20 19:43 94 H 98 06/24/20 19:38 87 97 06/24/20 19:37 75 121/70 06/24/20 19:33 73 98 06/24/20 19:30 36.8 C 18 06/24/20 19:28 73 98 06/24/20 19:23 70 99 06/24/20 19:21 71 124/78 06/24/20 19:18 80 98 06/24/20 19:13 76 98 06/24/20 19:08 71 98 06/24/20 19:07 73 120/74 06/24/20 19:03 85 97 06/24/20 18:58 77 97 06/24/20 18:53 89 98 06/24/20 18:52 85 109/62 06/24/20 18:48 93 H 98 06/24/20 18:43 79 96 06/24/20 18:38 80 105/58 L 97 06/24/20 18:33 88 96 06/24/20 18:30 18 06/24/20 18:28 88 98 06/24/20 18:23 85 99 06/24/20 18:22 87 114/66 06/24/20 18:18 89 100 06/24/20 18:13 92 H 100 06/24/20 18:08 101 H 100 06/24/20 18:07 86 109/62 06/24/20 18:03 102 H 100 06/24/20 18:00 18 06/24/20 17:58 84 99 06/24/20 17:53 83 100 06/24/20 17:52 77 115/76 06/24/20 17:48 76 100 06/24/20 17:47 36.4 C L 06/24/20 17:43 81 99 06/24/20 17:38 85 100 06/24/20 17:37 81 124/71 06/24/20 17:33 77 100 06/24/20 17:30 16 06/24/20 17:28 78 100 06/24/20 17:23 77 112/77 100 06/24/20 17:18 70 100 06/24/20 17:13 76 100 06/24/20 17:08 81 100 06/24/20 17:06 80 118/72 06/24/20 17:03 79 100 06/24/20 17:00 18 06/24/20 16:58 85 100 06/24/20 16:53 77 127/73 100 06/24/20 16:48 81 100 06/24/20 16:43 82 99 06/24/20 16:38 81 100 06/24/20 16:37 76 112/69 06/24/20 16:33 73 100 06/24/20 16:28 71 99 06/24/20 16:23 36.3 C L 77 20 105/61 100 06/24/20 16:18 84 98 06/24/20 16:13 75 98 06/24/20 16:08 79 99 06/24/20 16:06 75 108/60 06/24/20 16:03 76 99 06/24/20 15:58 88 98 06/24/20 15:53 81 113/57 L 98 06/24/20 15:48 84 98 06/24/20 15:43 85 98 06/24/20 15:38 86 98 06/24/20 15:37 85 112/66 06/24/20 15:33 76 98 06/24/20 15:28 96 H 98 06/24/20 15:23 78 96 06/24/20 15:22 80 106/56 L 06/24/20 15:18 77 96 06/24/20 15:13 77 97 06/24/20 15:08 71 95 06/24/20 15:06 77 97/56 L 06/24/20 15:03 78 96 06/24/20 14:58 75 95 06/24/20 14:53 77 98/55 L 96 06/24/20 14:48 72 95 06/24/20 14:43 76 96 06/24/20 14:38 93 H 95 06/24/20 14:37 78 109/62 06/24/20 14:33 84 98 06/24/20 14:28 72 95 06/24/20 14:23 77 95 06/24/20 14:22 75 103/56 L 94 06/24/20 14:18 79 95 06/24/20 14:16 77 94 06/24/20 14:13 90 97 06/24/20 14:08 97 H 103/58 L 96 06/24/20 14:07 80 94 06/24/20 14:03 97 H 98 06/24/20 14:00 76 93 06/24/20 13:58 103 H 97 06/24/20 13:54 92 H 104/56 L 06/24/20 13:53 78 99 06/24/20 13:50 73 107/60 06/24/20 13:48 76 95 06/24/20 13:47 81 97/53 L 06/24/20 13:45 75 94 06/24/20 13:43 103 H 97 06/24/20 13:42 89 101/55 L 06/24/20 13:38 77 100/55 L 96 06/24/20 13:33 91 H 111/59 L 97 06/24/20 13:29 91 H 109/60 06/24/20 13:28 86 98 06/24/20 13:23 94 H 99 06/24/20 13:22 91 H 107/58 L 06/24/20 13:18 97 H 99 06/24/20 13:17 104 H 110/63 06/24/20 13:15 86 109/58 L 06/24/20 13:13 88 124/58 L 100 Coding Level of Care Code None Diagnoses Encounter for elective induction of labor Z34.90
[2020-06-25] MEDS ORDERED: Nursing to Pharmacy Communication SCH (01:45)
[2020-06-25] MEDS ORDERED: METHYLERGONOVINE MALEATE 0.2 MG/ML AMP ONE (02:37)
[2020-06-25] MEDS ORDERED: oxyCODONE/ACETAMINOPHEN 5mg/325mg TAB PO PRN (02:52)
[2020-06-25] MEDS ORDERED: ACETAMINOPHEN 325 MG TAB PO PRN (02:52)
--- NOTE | 2020-06-25 02:55 | Delivery Summary ---
Vaginal Delivery Summary Date of Service June 25, 2020 Vaginal Delivery Summary Pre-operative Diagnosis: at 39 weeks elective induction for exacerbation of chronic back pain Post-operative Diagnosis: same Procedure: kim bulb for cervical ripening pitocin induction epidural arom iupc second degree laceration with repair EBL: 400cc Anesthesia: epidural Procedure: The patient pushed for about 10 minutes to deliver a viable male infant in joaquín position. The nose and mouth were bulb suctioned on the perineum and the rest of the infant was then delivered without difficulty. The baby was vigorous. The nose and mouth were again bulb suctioned and the infant was placed in the maternal abdomen for drying and attention. Cord was clamped and cut at one minute of life. Cord blood and segment obtained. Placenta delivered spontaneous, intact with a three vessel cord. Cervix/sulci/rectum were intact. A second degree perineal laceration was repaired in the normal standard fashion. Hemostasis obtained with dilute pitocin and fundal massage. Apgars were 8/9. Mother and baby doing well at the end of the delivery. [facility] Vaginal Delivery Charge Vaginal Delivery Codes: 84376 global code for the antepartum, delivery, and post-
--- NOTE | 2020-06-25 03:10 | Anesthesia Procedure Note ---
Date of Service June 25, 2020 Anesthesia Post Epidural Note Vital Signs Vital Signs: Temp Pulse Resp BP Pulse Ox 36.7 C 100 H 18 128/74 49 L 06/25/20 00:30 06/25/20 02:59 06/25/20 01:30 06/25/20 02:59 06/25/20 02:25 Pain Intensity Bilateral Abdomen: Pain Intensity: 8 Notes Mental Status: alert / awake / arousable Nausea / Vomiting: adequately controlled Pain: adequately controlled Airway Patency, RR, SpO2: stable & adequate BP & HR: stable & adequate Hydration State: stable & adequate Neuraxial Anesthesia: was administered and sensory block is resolving Anesthetic Complications: no major complications apparent Epidural: Removed without complications and With tip intact
[2020-06-25] MEDS ORDERED: OXYTOCIN 30 UNITS/500 ML BAG IV PRN (03:18)
[2020-06-25] MEDS ORDERED: bisacodyL 10 MG SUPP PR PRN (03:18)
[2020-06-25] MEDS ORDERED: DIPHTHERIA/TETANUS/PERTUSSIS 0.5 ML SYR/VIAL IM ONE (03:18)
[2020-06-25] MEDS ORDERED: METHYLERGONOVINE MALEATE 0.2 MG/ML AMP IM ONE (03:18)
[2020-06-25] MEDS ORDERED: SUPERCREAM 0.870% 15 GM JAR EXT PRN (03:18)
[2020-06-25] MEDS ORDERED: BENZOCAINE 20% AER SPR 82.5 GM CAN EXT PRN (03:18)
[2020-06-25] MEDS ORDERED: HYDROCORTISONE ACETATE 25 MG SUPP PR PRN (03:18)
[2020-06-25] MEDS: IBUPROFEN 600 MG TAB PO PRN ×4 (05:30→20:00)
[2020-06-25] MEDS: DOCUSATE SODIUM 100 MG CAP PO SCH ×2 (09:05→20:00)
[2020-06-25] MEDS: PRENATAL VITAMIN 1 TAB PO SCH (09:05)
[2020-06-26] MEDS: IBUPROFEN 600 MG TAB PO PRN ×2 (00:19→08:28)
[2020-06-26 02:15] VITALS: BP 115/74
--- NOTE | 2020-06-26 06:28 | Obstetrical Progress Note ---
Date of Service <Alexandre Small MD - Last Filed: 06/26/20 07:16> June 26, 2020 Assessment & Plan <Alexandre Small MD - Last Filed: 06/26/20 07:16> (1) Encounter for elective induction of labor: A/P: Michelle Bynum is a 34 y/o female on PPD#1 s/p elective IOL at 39+2 weeks for chronic back pain. * Patient feels well today; eating well, voiding well, ambulating well * Pain well-controlled with ibuprofen 600mg q4h prn * PNL: Rh neg, RI, GBS neg, COVID neg * Baby's blood type is O+; will administer Rhogam * Routine postcesarean care: OOB, ambulation, diet progression as tolerated * Will remove kim catheter today * Likey discharge later this afternoon if patient can void without issue after kim is removed * After discharge, will have six-week follow-up with Dr. Kevin Britton <Alexandre Small MD - Last Filed: 06/26/20 07:16> Ambulation: ambulating normally Voiding: no voiding problems Passing Gas:: Yes Diet Tolerance:: regular diet Lochia:: Betty Bynum is a 34 y/o female on PPD#1 s/p elective IOL at 39+2 weeks for chronic back pain. She reports feeling well overall this morning. Mild abdominal cramping while , minimal pain otherwise, well-managed on analgesics. Kim catheter remains in placel. Tolerating meals overnight without difficulty. Patient has been able to ambulate some. Has persistent lochia with some improvement this morning. Currently . Constitutional: no fever and no chills Respiratory: no cough and no dyspnea Cardiovascular: no chest pain, no palpitations and no edema Gastrointestinal: no nausea and no vomiting Genitourinary (female): no dysuria Physical Exam <Alexandre Small MD - Last Filed: 06/26/20 07:16> General: alert, oriented, no acute distress Cardiac: regular rate and rhythm, no murmurs appreciated Respiratory: lungs clear to auscultation bilaterally a/p, no wheezes/rales/rhonchi, no increased work of breathing, symmetrical chest rise, no respiratory distress Abdomen: soft, minimally tender, nondistended, bowel sounds present Uterus: uterine fundus firm, palpable 5cm below umbilicus Lower extremities: no lower extremity edema or swelling, no deep calf pain, Reid's negative bilaterally Constitutional no acute distress Respiratory normal respiratory effort, lungs clear to auscultation Cardiovascular RRR, no murmur, no edema Gastrointestinal (Abdomen) Inspection/Auscultation: normal bowel sounds Percussion/Palpation: abdomen soft Results & Data ([facility]) <Alexandre Small MD - Last Filed: 06/26/20 07:16> Vital Signs (Past 12 Hours) Vital Signs Temp Pulse Resp BP 06/26/20 00:05 36.7 C 78 18 115/74 06/25/20 20:10 37.1 C 85 18 118/76 <Teresa Power MD - Last Filed: 06/26/20 08:12> Co-Signing Physician Notes Resident Physician Supervision Note: I interviewed and examined the patient. Discussed with Dr. Small and agree with findings and plan as documented in the note. Any exceptions or clarifications are listed here: PP1 s/p . Pt doing well, meeting all milestones with kim in place, good UOP. Plan for kim removal today and void trial. Pt desires discharge today if possible, if unable to void, is interested in going home with catheter and return for bladder challenge in the office Documented By: Teresa Power MD Resident Activity Tracking <Alexandre Small MD - Last Filed: 06/26/20 07:16> Resident Involvement: Resident Care Provided Care Provided: OB Delivery
[2020-06-26 06:46] LABS: Hematocrit (blood only) 32.1 % (37-47); Hemoglobin 10.7 g/dL (12.0-16.0)
[2020-06-26 08:08] VITALS: PULSE 68; TEMP 97.9; O2SAT 99
[2020-06-26] MEDS: PRENATAL VITAMIN 1 TAB PO SCH (08:27)
[2020-06-26] MEDS: DOCUSATE SODIUM 100 MG CAP PO SCH (08:27)
[2020-06-26] MEDS ORDERED: bisacodyL 5 MG TABEC PO SCH (20:00)
== END 2020-06-26 11:00 | disposition home or self-care (01) | DRG 806 ==
LOC: 4S1 07:39 → 4S2 06-25 05:15
DX: G89.4 Chronic pain syndrome; Z80.3 Family history of malignant neoplasm of breast; O99.354 Diseases of the nervous system complicating childbirth; O26.893 Other specified pregnancy related conditions, third trimester; M54.9 Dorsalgia, unspecified; Z98.1 Arthrodesis status; Z37.0 Single live birth; Z3A.39 39 weeks gestation of pregnancy; O70.1 Second degree perineal laceration during delivery